=== PATIENT | female | born 1985 | race Caucasian/White ===

== ENCOUNTER 2018-12-03 03:08 | Emergency (ER) | payer MEDICAID ==
[~2018-12-03] VITALS: Ht 162.6 cm; Wt 76.0 kg
[2018-12-03 03:10] VITALS: BP 117/67; PULSE 85; RESP 19; Ht 162.6 cm; Wt 76.0 kg
[2018-12-03] MEDS ORDERED: PHEN-717 PO (05:44)
[2018-12-03] MEDS ORDERED: NITR-58 PO (05:44)
--- NOTE | 2018-12-03 07:36 | ERD ---
ER Documentation Chief Complaint Chief Complaint UTI STARTED TODAY; HX OF UTI HPI 33-year-old presents for painful urination times 1 day. She states that the pain is burning. She also having frequency of urination. She has had prior similar symptoms which was due to urinary tract infection. Denies fevers or chills. Denies abdominal pain, nausea, vomiting. No other complaints. ROS All systems reviewed and are negative except as per history of present illness. Medications Home Meds Active Scripts Phenazopyridine Hcl* (Phenazopyridine Hcl*) 200 Mg Tablet, 200 MG PO TID for uti for 2 Days, #6 TAB Prov:KATIANA HOOD DO 12/03/18 Nitrofurantoin Monohyd Macrocr (Macrobid) 100 Mg Capsr, 100 MG PO BID for uti for 5 Days, #10 CAP Prov:KATIANA HOOD DO 12/03/18 Allergies Allergies: Coded Allergies: No Known Allergy (Unverified , 12/11/18) PMhx/Soc Medical and Surgical Hx: pt denies Medical Hx, pt denies Surgical Hx Hx Alcohol Use: No Hx Substance Use: No Hx Tobacco Use: No Physical Exam Vitals Vital Signs Date Temp Pulse Resp B/P (MAP) Pulse Ox O2 O2 Flow FiO2 Time Delivery Rate 12/03/18 97.6 85 19 117/67 100 03:10 (84) Physical Exam Const: No acute distress Resp: Clear to auscultation bilaterally Cardio: Regular rate and rhythm, no murmurs Abd: Soft, non tender, non distended. Normal bowel sounds Skin: No petechiae or rashes Back: No midline or flank tenderness Ext: No cyanosis, or edema Neur: Awake and alert Psych: Normal Mood and Affect Results 24 hrs Laboratory Tests Test 12/03/18 05:02 Bedside Urine pH (LAB) 7.0 Bedside Urine Protein (LAB) Negative Bedside Urine Glucose (UA) Negative Bedside Urine Ketones (LAB) Negative Bedside Urine Blood 2+ Bedside Urine Nitrite (LAB) Negative Bedside Urine Leukocyte Esterase (L 3+ Procedures/MDM Medical Decision Making: Differential diagnosis includes but not limited to bladder infection, pyel onephritis, urethritis. Patient appeared well on physical exam. Symptoms consistent with a urinary tract infection. Urine dip is positive for urinary tract infection. No flank pain or fever to suggest pyelonephritis. Prescription(s): Patient given prescription for Macrobid, Pyridium. Patient advised to follow up with PCP in 1-2 days. Patient advised to return to ED for new or worsening symptoms. Patient stable on discharge from the ED. Disclaimer: Inadvertent spelling and grammatical errors are likely due to EHR/dictation software use and do not reflect on the overall quality of patient care. Also, please note that the electronic time recorded on this note does not necessarily reflect the actual time of the patient encounter. Departure Diagnosis: Primary Impression: UTI (urinary tract infection) Condition: Fair Patient Instructions: Understanding Urinary Tract Infections (UTIs) Referrals: [facility] YOU HAVE RECEIVED A MEDICAL SCREENING EXAM AND THE RESULTS INDICATE THAT YOU DO NOT HAVE A CONDITION THAT REQUIRES URGENT TREATMENT IN THE EMERGENCY DEPARTMENT. FURTHER EVALUATION AND TREATMENT OF YOUR CONDITION CAN WAIT UNTIL YOU ARE SEEN IN YOUR DOCTORS OFFICE WITHIN THE NEXT 1-2 DAYS. IT IS YOUR RESPONSIBILITY TO MAKE AN APPOINTMENT FOR FOLOW-UP CARE. IF YOU HAVE A PRIMARY DOCTOR --you should call your primary doctor and schedule an appointment IF YOU DO NOT HAVE A PRIMARY DOCTOR YOU CAN CALL OUR PHYSICIAN REFERRAL HOTLINE AT IF YOU CAN NOT AFFORD TO SEE A PHYSICIAN YOU CAN CHOSE FROM THE FOLLOWING [facility] [address] [facility]. [facility] [address] [facility] [facility] [address] [facility] [facility] [address] [facility]. [facility] [address] [facility]. [facility]. [address] Additional Instructions: Llame al doctor MAANA y jossy kamille GERBER PARA DENTRO DE 1-2 CÁRDENAS.Dgale a la secr etaria que nosotros le instruimos hacer esta gerber.Avise o llame si hebert condicin se empeora antes de la gerber. Regresa aqui si peor o no mejor. KATIANA HOOD DO Dec 03, 2018 07:36
== END 2018-12-03 05:59 | disposition home or self-care (01) ==
LOC: FTE 03:08
DX: N39.0 Urinary tract infection, site not specified (principal)
CPT/HCPCS: 81003; 87086; Z7502; 99283